=== PATIENT | male | born 1955 | race Caucasian/White ===

== ENCOUNTER 2019-08-19 10:09 | Day surgery (SDC) | payer MEDICARE, BC ==
[~2019-08-19 10:09] MED LIST: Bupivacaine 0.5%/EPINEPHrine 1:200,000 50 ML MDV ONE; Meropenem 500 MG SDV ONE
[2019-08-19] MEDS ORDERED: Acetaminophen 500 MG Tab PO ONE (10:15)
[2019-08-19] MEDS: Dextrose 5%-Lactated Ringers 1,000 ML IV SCH ×2 (10:45→14:10)
[2019-08-19] MEDS ORDERED: Rocuronium 50 MG/5 ML Vial ONE (10:58)
[2019-08-19] MEDS ORDERED: Propofol 200 MG/20 ML SDV ONE (10:58)
[2019-08-19] MEDS ORDERED: Glycopyrrolate 0.2 MG/ML 5 ML MDV ONE (10:58)
[2019-08-19] MEDS ORDERED: fentaNYL 250 MCG/5 ML SDV ONE ×2 (10:58→12:41)
[2019-08-19] MEDS ORDERED: Neostigmine Methylsulfate 1 MG/ML 5 ML Syringe ONE (10:58)
[2019-08-19] MEDS ORDERED: Succinylcholine 200 MG/10 ML MDV ONE (10:58)
[2019-08-19] MEDS ORDERED: Dexamethasone 4 MG/ML SDV ONE (10:58)
[2019-08-19] MEDS ORDERED: Ondansetron 4 MG/2 ML SDV ONE (10:58)
[2019-08-19] MEDS: cefOXitin 2 GM in Sodium Chloride 0.9% 50 ML IV ONE ×2 (11:52→15:11)
[2019-08-19] MEDS ORDERED: Ropivacaine 46 ML, dexAMETHasone 8 MG, EPINEPHrine 0.4 MG, Sodium Chloride 0.9% 31.6 ML NERVRT SCH ×4 (12:00)
[2019-08-19] MEDS ORDERED: Ketamine 500 MG/5 ML MDV IV SCH (12:00)
[2019-08-19] MEDS ORDERED: Labetalol 20 MG/4 ML Syringe ONE (13:04)
[2019-08-19] MEDS ORDERED: hydrOXYzine HCL 100 MG/2 ML SDV IM ONE (13:46)
[2019-08-19] MEDS ORDERED: fentaNYL 100 MCG/2 ML SDV IVPUSH ONE (13:59)
[2019-08-19] MEDS ORDERED: HYDROmorphone 0.5 MG/0.5 ML Syringe IVPUSH PRN (15:18)
[2019-08-19] MEDS ORDERED: HYDROmorphone 1 MG/ML Syringe IV PRN (15:18)
[2019-08-19] MEDS ORDERED: Ondansetron 4 MG/2 ML SDV IVPUSH PRN (15:18)
[2019-08-19] MEDS ORDERED: Dextrose 5%-Lactated Ringers 1,000 ML IV SCH (15:30)
[2019-08-19] MEDS ORDERED: Pantoprazole 40 MG Vial IVPUSH SCH (16:00)
[2019-08-19] MEDS: cefOXitin 2 GM in Sodium Chloride 0.9% 50 ML IV SCH (17:58)
[2019-08-19] MEDS: Acetaminophen/HYDROcodone 325-5 MG Tab PO PRN ×2 (18:06→21:32)
[2019-08-20] MEDS: cefOXitin 2 GM in Sodium Chloride 0.9% 50 ML IV SCH ×2 (00:49→05:09)
[2019-08-20] MEDS: Acetaminophen/HYDROcodone 325-5 MG Tab PO PRN ×3 (01:02→08:07)
[2019-08-20] MEDS ORDERED: Pneumococcal Polyvalent-23 Vaccine 0.5 ML SDV IM ONE (09:00)
--- NOTE | 2019-08-22 09:52 | DISCH ---
FINAL DIAGNOSES: 1. Biliary dyskinesia. 2. Incarcerated umbilical hernia. OPERATIVE PROCEDURE: Diagnostic laparoscopy with: 1. Cholecystectomy. 2. Repair of incarcerated umbilical hernia. SUMMARY: This is a 63-year-old male presenting with recurrent episodes of upper abdominal chest pain radiating to the back. He was thought perhaps initially to have a gastritis or reflux disease and had been on a course of Protonix with no change in symptoms. A CCK- stimulated HIDA scan was obtained, which showed a marginal ejection fraction of around 35%, and the CCK injection at least partially reduced his symptoms. Following this, the patient was admitted and underwent a cholecystectomy. At the time of the surgery, the patient's gallbladder was noted to be fairly edematous and on examination contained a multitude of tiny yellow stones roughly the size of coarse sand. The patient was also noted to have a small umbilical hernia with some incarcerated preperitoneal fat, which was repaired concurrently. Postoperatively, no significant problems were noted. The patient is tolerating diet and will be discharged home. He will be on his current home medications plus Hegins 5/325 one tablet q.6 hours p.r.n. pain. Follow up with Dr. Del Rio at [facility] on 08/31/2019.
--- NOTE | 2019-08-29 15:08 | OR ---
DATE OF PROCEDURE: 08/19/2019 SURGEON: Fercho Del Rio MD PREOPERATIVE DIAGNOSIS: Biliary dyskinesia. POSTOPERATIVE DIAGNOSES: 1. Biliary dyskinesia. 2. Incarcerated umbilical hernia. OPERATIVE PROCEDURE: Diagnostic laparoscopy with: 1. Cholecystectomy (24785). 2. Repair of incarcerated umbilical hernia (01222). ANESTHESIA: General. NUTRITIONAL SERVICES HOST: Suly Moscoso PA-C. INDICATION FOR PROCEDURE: This is a 63-year-old male presenting with symptoms suggestive of ongoing biliary colic. The patient has discomfort in the right upper abdomen and lower chest, somewhat to the right of the midline and radiating to the back. The patient did have a course of Protonix, which did not affect the symptoms to any degree. CCK-stimulated HIDA scan did show a low-normal gallbladder ejection fraction. With the special reproduction of the patient's symptoms with the CCK injection, plan is to proceed with a laparoscopic cholecystectomy. Potential risks of the procedure including bleeding, infection, injury to underlying viscera, problems with persistent symptoms postoperatively were all reviewed and the patient wishes to proceed. DETAILS OF PROCEDURE: The patient was taken to the operating room, and after general endotracheal anesthesia was induced, the abdomen was prepped and draped. The transverse epigastric incision was made and the peritoneal cavity entered under direct vision with an Optiview trocar and inflated to 15 mmHg pressure with CO2. No underlying trocar insertion site injuries were seen. The patient was noted to have an umbilical hernia which contained some incarcerated preperitoneal fat. Transverse intraabdominal incision was made and the incarcerated preperitoneal fat was excised through the fascial defect and then the trocar was placed, which was then used for the camera port. A 5 mm right subcostal trocar was then also placed and bilateral transversus abdominis plane blocks were placed. The patient was noted to have quite a bit of edema in the gallbladder, particularly in the area of the cystic duct triangle. The gallbladder was retracted anteriorly and laterally and dissection began on the gallbladder neck that was initiated with Harmonic scalpel and continued around the gallbladder neck and cystic duct junction. Once this area along with the adjacent cystic artery were both clearly identified, both structures were clipped 3 times proximally and once distally and then divided. The gallbladder was then dissected off the gallbladder bed using Harmonic scalpel and delivered through the epigastric trocar site. Inspection of the gallbladder showed intense cholesterolosis of the mucosa, and there were numerable tiny yellow stones or sludge were present within the gallbladder. The area of dissection was inspected. No bleeding or bile leaks were seen. A drain was felt not to be necessary. At this point, the camera was brought up to the epigastric site again and the sutures for the umbilical hernia repair were placed using the laparoscopic suture passer using 0 Vicryl stitch. Once these were in position, the remainder of trocars were removed and peritoneal cavity deflated. The fascia at the epigastric site was closed with 0 Vicryl stitch and the umbilical hernia sutures were then tied as well. The skin was closed with some 4-0 Vicryl skin stitch. The patient was taken to the recovery room in satisfactory condition. There were no evident complications. Physician photographer assistant, Suly Moscoso, played an essential role in assisting in this case, helping to position the patient, retract structures as indicated, as well as suturing and cutting sutures when indicated. Her presence improved patient safety and decreased the operative time. Fercho Del Rio MD /[id number]
== END 2019-08-20 10:30 | disposition home or self-care (01) ==
LOC: JP.SDS 10:09 → JP.2SS 13:20 → JP.SDS 08-20 10:30
PROVIDERS: ATTEND Surgery
DX: K81.1 Chronic cholecystitis (principal); K82.8 Other specified diseases of gallbladder; K42.0 Umbilical hernia with obstruction, without gangrene; K21.9 Gastro-esophageal reflux disease without esophagitis; Z23 Encounter for immunization; Z79.899 Other long term (current) drug therapy
CPT/HCPCS: 36415; 47562; 49653; 82247; 84075; 85027; 88302; 88304; 90732; A9270; C9113; G0009; J0171; J0330; J0694; J1100; J2405; J2704; J2710; J2795; J3010; J3410; J3490; J7050; J7121; J2185

== ENCOUNTER 2019-09-22 07:11 | Day surgery (SDC) | payer MEDICARE, BC ==
[2019-09-22] MEDS ORDERED: Dextrose 5%-Lactated Ringers 1,000 ML IV SCH (08:15)
[2019-09-22] MEDS ORDERED: Glycopyrrolate 0.2 MG/ML 2 ML SDV IVPUSH ONE (08:15)
[2019-09-22] MEDS ORDERED: Propofol 200 MG/20 ML SDV ONE (08:17)
[2019-09-22] MEDS ORDERED: Midazolam 1 MG/ML 2 ML SDV ONE (08:17)
[2019-09-22] MEDS ORDERED: fentaNYL 100 MCG/2 ML SDV ONE (08:17)
[2019-09-22] MEDS ORDERED: Pantoprazole 40 MG Vial IVPUSH ONE (09:02)
--- NOTE | 2019-09-26 10:36 | OR ---
DATE OF PROCEDURE: 09/22/2019 SURGEON: Fercho Del Rio MD PREOPERATIVE DIAGNOSIS: Dysphagia referable to distal esophagus. POSTOPERATIVE DIAGNOSES: 1. Dysphagia, secondary to edema and small hiatal hernia and active gastroesophageal reflux disease. 2. [id number] antral gastritis. PROCEDURE PERFORMED: Esophagogastroduodenoscopy with: 1. Biopsies of esophagogastric junction for histologic evaluation. 2. Biopsies of antrum for CLOtest. ANESTHESIA: IV sedation. INDICATIONS FOR PROCEDURE: A 63-year-old male presenting with some increasing dysphagia, referable to distal esophagus, presently not on any antisecretory medication other than a p.r.n. Protonix, which he takes just sporadically. Plan is proceed with an upper GI endoscopy with biopsies and/or dilation as indicated. Potential risks including bleeding and perforation were discussed, and the patient wishes to proceed. DETAILS OF PROCEDURE: The patient was taken to the operating room and placed in the left lateral decubitus position. IV sedation was administered after which the upper GI endoscope was passed orally through the length of the esophagus into the stomach with retroflexion view of the fundus, thereafter, through the pyloric channel and into the proximal duodenum. Findings included normal hypopharynx, larynx, upper esophageal sphincter, and esophageal body. At the EG junction, a small hiatal hernia was noted, but there was quite a bit in the way of active gastroesophageal reflux disease with the distal esophageal mucosa being quite edematous and friable. There was no stricturing per se and no plaquing or signs of neoplastic change within the stomach, though the patient noted to have [id number] gastritis in the antrum without erosions or ulcers. The pyloric channel and duodenum at the junction of the 3rd and 4th portions were unremarkable. At this point, biopsies were obtained from the antrum and sent for CLOtest for H. pylori. Multiple biopsies were then obtained from the esophagogastric junction and sent for histologic evaluation. No bleeding from the biopsy sites was seen and the procedure was then concluded. The patient will be given Protonix 40 mg IV in the recovery room. He will be instructed to begin taking Protonix 40 mg daily rather than on a p.r.n. basis. We will notify the patient if the CLOtest is positive and initiate antibiotic coverage should that occur. Otherwise, the patient will be following up with Dr. Cecy Ward at [facility] in 3 weeks. Fercho Del Rio MD /[id number]
== END 2019-09-22 10:18 | disposition home or self-care (01) ==
LOC: JP.SDS 07:11
PROVIDERS: ATTEND Surgery
DX: K29.70 Gastritis, unspecified, without bleeding (principal); K21.9 Gastro-esophageal reflux disease without esophagitis; K44.9 Diaphragmatic hernia without obstruction or gangrene
CPT/HCPCS: 43239; 87081; C9113; J2250; J2704; J3010; J3490; J7121; 88305; 88312

== ENCOUNTER 2024-12-11 16:31 | Emergency (ER) | payer MEDICARE ==
[2024-12-11 17:19] LABS: BASOPHILS PERCENT AUTO 0.4 % (0.1-1.3); EOSINOPHILS PERCENT AUTO 0.8 % (0.0-5.4); HEMATOCRIT 38.5 % (38.4-49.7); HEMOGLOBIN 13.1 g/dL (12.9-16.9); IMMATURE GRAN PERCENT AUTO 0.4 % (0.0-0.7); LYMPHOCYTES PERCENT AUTO 37.7 % (11.4-47.7); MONOCYTES ABSOLUTE AUTO 0.14 K/uL (0.20-0.90); MONOCYTES PERCENT AUTO 5.9 % (3.3-12.6); NEUTROPHILS ABSOLUTE AUTO 1.31 K/uL (1.0-7.6); NEUTROPHILS PERCENT AUTO 54.8 % (40.0-78.1); PLATELET COUNT,PLT 120 K/uL (130-375); RED BLOOD CELL COUNT 4.23 M/uL (4.14-5.76); WHITE BLOOD CELL COUNT,WBC 2.4 K/uL (3.2-11.0)
[2024-12-11] MEDS: Ketorolac 15 MG/ML SDV IVPUSH ONE (17:21)
[2024-12-11] MEDS: Sodium Chloride 0.9% 10 ML Syringe FLUSH PRN (17:23)
[2024-12-11 17:25] LABS: EOSINOPHILS ABSOLUTE AUTO 0.02 K/uL (0.00-0.40)
[2024-12-11 17:26] LABS: BASOPHILS ABSOLUTE AUTO 0.01 K/uL (0.00-0.10); IMMATURE GRAN ABSOLUTE AUTO 0.01 K/uL (0.00-0.23)
[2024-12-11 17:41] LABS: A/G RATIO 0.9 (1.2-2.2); ALANINE AMINOTRANSFERASE,ALT 23 U/L (12-78); ALBUMIN 3.4 g/dL (3.4-5.0); ALKALINE PHOSPHATASE 66 U/L (46-116); ANION GAP 9.1 mmol/L (5.0-14.0); ASPARTATE AMNIOTRANSFERASE,AST 22 U/L (15-37); BILIRUBIN TOTAL 0.3 mg/dL (0.2-1.0); BLOOD UREA NITROGEN,BUN 23 mg/dL (7-18); CALCIUM 9.3 mg/dL (8.5-10.1); CARBON DIOXIDE,CO2 29 mmol/L (21-32); CHLORIDE,CL 105 mmol/L (100-108); CREATININE 1.1 mg/dL (0.8-1.3); EST CRCL DRUG DOSING (CG) 58.42 mL/min; ESTIMATED GFR 72 mL/min (>60); GLUCOSE RANDOM 106 mg/dL (74-106); POTASSIUM,K 4.1 mmol/L (3.6-5.2); PROTEIN TOTAL,TP 7.3 g/dL (6.4-8.2); SODIUM,NA 139 mmol/L (140-148)
[2024-12-11] MEDS: Iopamidol 755 Mg/ML 100 ML Bottle IV SCH (18:21)
[2024-12-11] MEDS: Sodium Chloride 0.9% 100 ML IV SCH (18:21)
[2024-12-11] MEDS: Sodium Chloride 0.9% 10 ML Syringe FLUSH ONE (18:21)
[2024-12-11 18:30] LABS: APPEARANCE,URINE CLOUDY (CLEAR); BILIRUBIN,URINE NEGATIVE (NEGATIVE); COLOR,URINE YELLOW (YELLOW); GLUCOSE,URINE NEGATIVE (NEGATIVE); KETONES,URINE NEGATIVE (NEGATIVE); LEUKOCYTE ESTERASE,URINE NEGATIVE (NEGATIVE); NITRITE,URINE NEGATIVE (NEGATIVE); OCCULT BLOOD,URINE NEGATIVE (NEGATIVE); PROTEIN,URINE NEGATIVE (NEGATIVE); UROBILINOGEN,URINE 0.2 EU/dL (0.2-1.0)
[2024-12-11 18:42] LABS: AMORPHOUS SEDIMENT,URINE MODERATE; BACTERIA,URINE FEW; EPITHELIAL CELLS,URINE RARE; MUCUS,URINE RARE; RBC,URINE NOT SEEN (0-5); WBC,URINE NOT SEEN (0-5)
[2024-12-11] MEDS: Sodium Chloride 0.9% 1,000 ML IV SCH (22:30)
[2024-12-11] MEDS: Heparin Sodium/D5W 25,000 UNITS/500 ML BAG IV SCH (22:30)
[2024-12-11] MEDS ORDERED: Naloxone 0.4 MG/ML SDV IVPUSH PRN (22:40)
[2024-12-11] MEDS: HYDROmorphone 0.5 MG/0.5 ML Syringe IVPUSH ONE (22:51)
[2024-12-12] MEDS ORDERED: Naloxone 0.4 MG/ML SDV IVPUSH PRN (02:00)
[2024-12-12] MEDS: Morphine 4 MG/ML Syringe IVPUSH ONE (02:15)
== END 2024-12-12 04:34 | disposition other institution (70) ==
LOC: JP.ED 16:31
DX: I26.99 Other pulmonary embolism without acute cor pulmonale (principal); I82.409 Acute embolism and thrombosis of unspecified deep veins of unspecified lower extremity; R91.8 Other nonspecific abnormal finding of lung field; K21.9 Gastro-esophageal reflux disease without esophagitis; Z90.49 Acquired absence of other specified parts of digestive tract; Z79.01 Long term (current) use of anticoagulants; Z79.899 Other long term (current) drug therapy
CPT/HCPCS: 36415; 71275; 80053; 81001; 85025; 85379; 85730; 86140; 96365; 96366; 96375; 99285; J1644; J1885; J2270; J7030; Q9967

== ENCOUNTER 2025-01-16 07:53 | Day surgery (SDC) | payer MEDICARE ==
[2025-01-16] MEDS ORDERED: fentaNYL 50 MCG/ML SDV ONE (08:13)
[2025-01-16] MEDS ORDERED: Midazolam 1 MG/ML 2 ML SDV ONE (08:13)
[2025-01-16] MEDS ORDERED: Propofol 200 MG/20 ML SDV ONE (08:13)
[2025-01-16] MEDS ORDERED: Atropine 0.4 MG/ML SDV ONE (08:17)
[2025-01-16] MEDS: Lactated Ringers 1,000 ML IV SCH (09:04)
== END 2025-01-16 11:05 | disposition home or self-care (01) ==
LOC: JP.SDS 07:53
PROVIDERS: ATTEND Surgery
DX: Z12.11 Encounter for screening for malignant neoplasm of colon (principal); K57.30 Diverticulosis of large intestine without perforation or abscess without bleeding; Z86.0100 Personal history of colon polyps, unspecified
CPT/HCPCS: 00811; 45380; J2250; J2704; J3010; J7120; J0461